=== PATIENT | female | born 1945 | race Caucasian/White ===

== ENCOUNTER 2021-06-28 15:52 | Emergency (ER) | payer OTHER, SELFPAY ==
--- NOTE | ~2021-06-28 | XR_ITS ---
EXAMINATION: XR ABDOMEN KUB CLINICAL INDICATION: Lower abdominal pain. History of constipation. COMPARISON: None TECHNIQUE: AP view of the abdomen. FINDINGS: The bowel gas pattern is normal with no evidence of ileus or obstruction. Moderate volume of stool scattered throughout colon from cecum through pelvis. No unusual soft tissue calcifications are noted. Vascular stent in the distal aorta and the iliac arteries. Advanced multilevel degenerative spondylosis spine. Degenerative joint disease of hips bilateral. XR/XR KUB IMPRESSION: Moderate volume of scattered stool in colon. Nonobstructive bowel pattern.
[2021-06-28 16:20] VITALS: BP 121/58; PULSE 102; RESP 18; TEMP 36.8; O2SAT 96; BMI 29.1
[2021-06-28 16:34] LABS: MANUAL DIFF FLAG NO
[2021-06-28 16:36] LABS: Basophils Percent Auto 0.3 % (0-2); Eosinophils Absolute Auto 0.3 X10*3/uL (0.0-0.4); Eosinophils Percent Auto 2.8 % (0-4); Hematocrit 36.4 % (37.0-47.0); Hemoglobin 11.8 g/dl (12.0-16.0); Imm Gran Abs Auto 0.03 X10*3/uL (0.00-0.03); Imm Gran Pct Auto 0.3 % (0.0-0.4); Lymphocytes Absolute Auto 1.7 X10*3/uL (1.2-4.9); Lymphocytes Percent Auto 15.6 % (20-40); Mean Corpuscular HGB Conc 32.4 g/dl (31.0-35.0); Mean Corpuscular Hemoglobin 28.1 pg (27.0-33.0); Mean Corpuscular Volume 86.7 fL (80.0-98.0); Mean Platelet Volume 9.4 fL (9.4-12.3); Monocytes Absolute Auto 0.7 X10*3/uL (0.1-1.2); Monocytes Percent Auto 6.4 % (2-11); Neutrophils Absolute Auto 8.1 x10*3/uL (2.0-8.3); Neutrophils Percent Auto 74.6 % (45-73); Platelet Count 303 X10*3/uL (160-400); Red Cell Distribution Width 15.7 % (11.0-16.0); White Blood Count 10.8 X10*3/uL (4.8-10.8)
[2021-06-28 16:48] LABS: Anion Gap 13 (12-20); Blood Urea Nitrogen 15 mg/dL (9-16); Calcium 9.4 mg/dL (8.4-10.2); Carbon Dioxide 28 mmol/L (22-29); Chloride 103 mmol/L (96-108); Creatinine Clr Calc Pharmacy 60.9; Estimated Glomerular Filt Rate > 60; Glucose Random 111 mg/dL (60-115); Potassium 4.3 mmol/L (3.3-5.1); Sodium 140 mmol/L (135-145)
[2021-06-28 17:05] LABS: Appearance Urine CLEAR; Color Urine YELLOW; Glucose Urine UA NEG (NEG); Leukocyte Esterase Urine NEG (NEG); Nitrite Urine NEG (NEG); Specific Gravity - Urine 1.015 (1.005-1.025); UACC Culture Trigger NO; Urine Blood TRACE (NEG); Urine Ketones NEG (NEG); Urine Protein 1+ MG/DL (NEG-TRACE)
[2021-06-28 17:39] LABS: Bacteria Urine 2+ /LPF; RBC Urine 0-2 /HPF (0); Squamous Epithelial Cell Urine 3+ /LPF; WBC Urine 0-2 /HPF (0-4)
[2021-06-28 18:35] VITALS: BP 110/53; PULSE 80; O2SAT 93
[2021-06-28 19:46] LABS: Lipase 25 U/L (8-78)
== END 2021-06-28 19:35 | disposition left against medical advice (07) ==
LOC: HO.ED 19:33
PROVIDERS: Emergency Provider Emergency Medicine; PCP Internal Medicine
DX: R10.30 Lower abdominal pain, unspecified (principal)
CPT/HCPCS: 36415; 74018; 80048; 81001; 81003; 83690; 85025; 99283

== ENCOUNTER 2021-07-20 14:08 | Outpatient (REF) | payer MEDICARE, SELFPAY ==
[2021-07-20 16:56] LABS: Hematocrit 35.8 % (37.0-47.0); Hemoglobin 11.3 g/dl (12.0-16.0); Mean Corpuscular HGB Conc 31.6 g/dl (31.0-35.0); Mean Corpuscular Hemoglobin 27.8 pg (27.0-33.0); Mean Corpuscular Volume 88.2 fL (80.0-98.0); Mean Platelet Volume 9.7 fL (9.4-12.3); Platelet Count 313 X10*3/uL (160-400); Red Blood Count 4.06 X10*6/uL (4.20-5.50); Red Cell Distribution Width 15.5 % (11.0-16.0); White Blood Count 8.6 X10*3/uL (4.8-10.8)
[2021-07-20 17:53] LABS: Folate > 20.0 ng/mL (> or = 4.0); Vitamin B12 594 pg/mL (200-900)
[2021-07-20 19:38] LABS: Alanine Aminotransferase 12 U/L (0-31); Albumin Level 3.9 g/dL (3.5-5.0); Alkaline Phosphatase 115 U/L (39-117); Anion Gap 15 (12-20); Aspartate Amino Transferase 18 U/L (5-31); Bilirubin Total 0.2 mg/dL (0.0-1.0); Blood Urea Nitrogen 15 mg/dL (9-16); Calcium 9.6 mg/dL (8.4-10.2); Carbon Dioxide 23 mmol/L (22-29); Chloride 108 mmol/L (96-108); Estimated Glomerular Filt Rate > 60; Glucose Random 85 mg/dL (60-115); Lipase 52 U/L (8-78); Potassium 4.5 mmol/L (3.3-5.1); Sodium 141 mmol/L (135-145); Total Protein 7.1 g/dL (6.5-8.0)
[2021-07-20 19:58] LABS: TSH reflex Free T4 2.09 uIU/mL (0.32-4.0)
[2021-07-22 11:12] LABS: H Pylori Breath Test Negative (Negative)
[2021-07-23 20:41] LABS: Transglutaminase Ab IgG <1.0 U/mL; Transglutaminase IgA <1.0 U/mL
[2021-07-26 12:21] LABS: Vitamin D 25-OH, D2 <4 ng/mL; Vitamin D 25-OH, D3 41 ng/mL; Vitamin D 25-OH, Total 41 ng/mL (30-100)
== END 2021-07-20 14:09 | disposition home or self-care (01) ==
LOC: HO.LAB 14:08
PROVIDERS: PCP Internal Medicine; Referring Provider Internal Medicine; Visit Provider Nurse Practitioner Family
DX: E55.9 Vitamin D deficiency, unspecified (principal); R19.7 Diarrhea, unspecified; K21.9 Gastro-esophageal reflux disease without esophagitis; K58.1 Irritable bowel syndrome with constipation; R14.0 Abdominal distension (gaseous); R13.10 Dysphagia, unspecified; K59.04 Chronic idiopathic constipation; K64.8 Other hemorrhoids
CPT/HCPCS: 36415; 80053; 82306; 82607; 82746; 83013; 83690; 84443; 85027; 86364

== ENCOUNTER 2021-07-23 14:41 | Outpatient (REF) | payer MEDICARE, SELFPAY ==
[2021-07-23 15:29] LABS: Alanine Aminotransferase 9 U/L (0-31); Albumin Level 3.8 g/dL (3.5-5.0); Alkaline Phosphatase 109 U/L (39-117); Anion Gap 12 (12-20); Aspartate Amino Transferase 15 U/L (5-31); Bilirubin Total 0.2 mg/dL (0.0-1.0); Blood Urea Nitrogen 12 mg/dL (9-16); Calcium 9.4 mg/dL (8.4-10.2); Carbon Dioxide 26 mmol/L (22-29); Chloride 107 mmol/L (96-108); Estimated Glomerular Filt Rate > 60; Glucose Random 79 mg/dL (60-115); Potassium 4.2 mmol/L (3.3-5.1); Sodium 141 mmol/L (135-145); Total Protein 6.8 g/dL (6.5-8.0)
[2021-07-30 18:52] LABS: Pancreatic Elastase-1 >500 mcg/g
== END 2021-07-23 14:42 | disposition home or self-care (01) ==
LOC: HO.LAB 14:41
PROVIDERS: Nurse Practitioner Family; PCP Internal Medicine; Visit Provider Internal Medicine
DX: R10.9 Unspecified abdominal pain (principal); J84.9 Interstitial pulmonary disease, unspecified; L21.9 Seborrheic dermatitis, unspecified; M06.9 Rheumatoid arthritis, unspecified; M48.061 Spinal stenosis, lumbar region without neurogenic claudication
CPT/HCPCS: 36415; 80053; 82656

== ENCOUNTER 2021-08-21 08:36 | Outpatient (REF) | payer MEDICARE, SELFPAY ==
--- NOTE | ~2021-08-21 | CT_ITS ---
EXAMINATION: CT ABDOMEN AND PELVIS WITHOUT CONTRAST CLINICAL INFORMATION: Abdominal pain COMPARISON: Previous CT of the abdomen and pelvis July 2021 TECHNIQUE: Multidetector volumetric imaging was performed from the superior aspect of the liver through the pubic symphysis. Sagittal and coronal reformatted images were obtained on the technologist's workstation. This CT examination was performed using dose optimization techniques as appropriate, variously including the following: *Automated exposure control *Adjustment of mA and/or kV according to patient size (this includes techniques or standardized protocols for targeted exams where dose is matched to indication/reason for exam; i.e. extremities or head) *Use of iterative reconstruction technique DLP: 335 mGy-cm FINDINGS: LUNG BASES: The visualized lung bases are unremarkable. LIVER, GALLBLADDER, AND BILIARY TREE: The liver is normal in size, shape, and attenuation. No focal hepatic lesion or biliary ductal dilatation is present. Air in the liver is no longer seen. The gallbladder is unremarkable with no evidence of radiopaque gallstones, gallbladder wall thickening, or obvious pericholecystic inflammatory changes. PANCREAS: Unremarkable. SPLEEN: Unremarkable. ADRENAL GLANDS: Unremarkable. KIDNEYS AND URETERS: The kidneys are normal in size, shape, and attenuation. No hydronephrosis, hydroureter, or calculi seen. There are small calcifications in the left kidney probably representing vascular calcifications as opposed to stones. BLADDER: Unremarkable. GASTROINTESTINAL TRACT: There is stool throughout the colon suggestive of constipation. There is diverticulosis of the colon. Small and large bowel is otherwise unremarkable. The appendix is not seen. The stomach is unremarkable. ABDOMINAL WALL: No significant hernia is appreciated. LYMPH NODES: Normal. VASCULAR: There is evidence of atherosclerotic disease. There are bilateral iliac artery stents. No aneurysm is seen. PELVIC VISCERA: Unremarkable. OSSEOUS STRUCTURES: There are degenerative changes of the spine. CT/CT abdomen pelvis wo con IMPRESSION: Diverticulosis and constipation. Small left renal calcifications probably representing vascular calcifications as opposed to stones. Atherosclerotic disease and bilateral iliac artery stents. Fleischner guidelines were followed.
[2021-08-21] MEDS: Barium Sulfate Oral (Vanilla) 450 ML ORAL.SUSP 900 ML PO (10:59)
== END 2021-08-21 08:37 | disposition home or self-care (01) ==
LOC: HO.CT 08:36
PROVIDERS: PCP Internal Medicine; Visit Provider Nurse Practitioner Family
DX: R10.9 Unspecified abdominal pain (principal)
CPT/HCPCS: 74176

== ENCOUNTER 2021-08-23 14:41 | Outpatient (REF) | payer MEDICARE, SELFPAY ==
--- NOTE | ~2021-08-23 | XR_ITS ---
EXAMINATION: XR LUMBOSACRAL SPINE CLINICAL INFORMATION: Postlaminectomy syndrome COMPARISON: None TECHNIQUE: Three views of the lumbosacral spine. FINDINGS: No acute fracture or subluxation. Vertebral body height and alignment maintained. Diffuse disc space narrowing with endplate sclerosis and osteophyte formation. Multilevel facet arthropathy. The sacroiliac joints are symmetric. The sacrum is intact. Vascular stents noted. XR/XR lumbar spine 2-3V IMPRESSION: Moderate degenerative changes throughout the lumbar spine.
--- NOTE | ~2021-08-23 | XR_ITS ---
EXAMINATION: XR KNEE, LEFT XR KNEE, RIGHT CLINICAL INFORMATION: Knee pain COMPARISON: None TECHNIQUE: 4 views of each knee FINDINGS: Left knee: No fracture or subluxation. There is severe medial compartment joint space narrowing with inferior tilt of the tibial plateau. Xath-ip-khan appearance with subchondral sclerosis, cyst formation, and prominent osteophytes. Mild narrowing at the lateral and patellofemoral compartments with mild osteophyte formation. Small joint effusion. Enthesophyte formation of the patella. Right knee: No fracture or subluxation. Severe medial compartment narrowing with inferior tilt of the medial tibial plateau. Prominent osteophytes with sclerosis. Mild narrowing at the lateral and patellofemoral compartments with marginal osteophyte formation. Small joint effusion. Enthesophyte formation of the patella. XR/XR knee RT 3V IMPRESSION: Advanced tricompartmental degenerative changes of both knees, most severe at the medial compartment bilaterally.
--- NOTE | ~2021-08-23 | XR_ITS ---
EXAMINATION: XR KNEE, LEFT XR KNEE, RIGHT CLINICAL INFORMATION: Knee pain COMPARISON: None TECHNIQUE: 4 views of each knee FINDINGS: Left knee: No fracture or subluxation. There is severe medial compartment joint space narrowing with inferior tilt of the tibial plateau. Jqsl-[id number] appearance with subchondral sclerosis, cyst formation, and prominent osteophytes. Mild narrowing at the lateral and patellofemoral compartments with mild osteophyte formation. Small joint effusion. Enthesophyte formation of the patella. Right knee: No fracture or subluxation. Severe medial compartment narrowing with inferior tilt of the medial tibial plateau. Prominent osteophytes with sclerosis. Mild narrowing at the lateral and patellofemoral compartments with marginal osteophyte formation. Small joint effusion. Enthesophyte formation of the patella. XR/XR knee LT 3V IMPRESSION: Advanced tricompartmental degenerative changes of both knees, most severe at the medial compartment bilaterally.
== END 2021-08-23 14:42 | disposition home or self-care (01) ==
LOC: HO.XRAY 14:41
PROVIDERS: PCP Internal Medicine; Visit Provider Nurse Practitioner Family
DX: M47.816 Spondylosis without myelopathy or radiculopathy, lumbar region (principal); M96.1 Postlaminectomy syndrome, not elsewhere classified; M17.0 Bilateral primary osteoarthritis of knee
CPT/HCPCS: 72100; 73562; 99202

== ENCOUNTER → 2021-09-05 12:14 | Outpatient (BNVA) | payer MEDICARE, SELFPAY | PROVIDERS: PCP Internal Medicine; Visit Provider Nurse Practitioner Family | DX: K58.1 Irritable bowel syndrome with constipation (principal); K59.04 Chronic idiopathic constipation; K21.9 Gastro-esophageal reflux disease without esophagitis; K64.9 Unspecified hemorrhoids | CPT/HCPCS: 99212 ==

== ENCOUNTER → 2021-09-18 14:33 | Outpatient (BNVA) | payer MEDICARE, SELFPAY | PROVIDERS: PCP Internal Medicine; Visit Provider Nurse Practitioner Family | DX: M47.816 Spondylosis without myelopathy or radiculopathy, lumbar region (principal); M96.1 Postlaminectomy syndrome, not elsewhere classified; M17.0 Bilateral primary osteoarthritis of knee; M25.561 Pain in right knee; M25.562 Pain in left knee | CPT/HCPCS: 99212 ==

== ENCOUNTER → 2021-10-10 10:38 | Outpatient (BNVA) | payer MEDICARE, SELFPAY | PROVIDERS: PCP Internal Medicine; Visit Provider Nurse Practitioner Family | DX: R10.9 Unspecified abdominal pain (principal); K58.1 Irritable bowel syndrome with constipation; K59.04 Chronic idiopathic constipation; K21.9 Gastro-esophageal reflux disease without esophagitis; Z86.010 Personal history of colon polyps | CPT/HCPCS: 99212 ==

== ENCOUNTER → 2021-10-15 07:45 | Outpatient (REF) | payer MEDICARE, SELFPAY ==
--- NOTE | ~2021-10-15 | NM_ITS ---
EXAMINATION: [place] NUCLEAR MEDICINE HEPATOBILIARY WITHOUT PHARMACY CLINICAL INFORMATION: Abdominal pain. COMPARISON: CT abdomen and pelvis without contrast 08/21/2021. TECHNIQUE: Following intravenous administration of 5 mCi of 99m Tc mebrofenin, imaging over the right upper quadrant was obtained up to 60 minutes. At 60 minutes, oral ensure was administered and further imaging was obtained up to 60 minutes. FINDINGS: There is normal hepatic uptake without focal defects seen. There is visualization of CBD at 29 minutes. Small bowel is visualized at 35 minutes. Post-CCK, gallbladder ejection fraction at 60 minutes is 58% and is normal. [place] hepatobiliary wo pharm IMPRESSION: Normal hepatic uptake. Patent cystic duct and CBD. Normal gallbladder ejection fraction of 58% at 60 minutes.
== END ==
LOC: HO.NUCMED 07:45
PROVIDERS: PCP Internal Medicine; Visit Provider Nurse Practitioner Family
DX: R10.9 Unspecified abdominal pain (principal)
CPT/HCPCS: 78226; A9537

== ENCOUNTER 2021-10-22 11:58 | Outpatient (REF) | payer MEDICARE, SELFPAY | END 2021-10-22 11:59 | disposition home or self-care (01) | LOC: HO.HOSX 11:58 | PROVIDERS: Visit Provider Orthopaedic Surgery | DX: Z13.89 Encounter for screening for other disorder (principal) ==

== ENCOUNTER 2021-10-25 12:25 | Day surgery (SDC) | payer MEDICARE, SELFPAY ==
[2021-10-19 10:09] VITALS: BMI 29.1
--- NOTE | 2021-10-24 13:14 | P.CONAN_ITS ---
Documented by User: April Vargas NP 10/24/21 13:17 HPI - Anesthesia Eval Consult details Narrative: 76yo F for Colonoscopy PMFSH Active Problems Active Problems: All Active Problems (Updated 10/19/21 @ 10:05 by Marifer Quinteros RN) Bilateral knee pain (Acute) Lumbar spondylosis (Acute) Post laminectomy syndrome (Acute) Tricompartment osteoarthritis of both knees (Acute) IBS (irritable bowel syndrome) (Acute) Past Medical History Medical History (Updated 10/19/21 @ 10:05 by Marifer Quinteros RN) Arthritis Asthma Back pain COPD (chronic obstructive pulmonary disease) GERD (gastroesophageal reflux disease) Hard of hearing IBS (irritable bowel syndrome) Peripheral neuropathy Rheumatoid arthritis Spinal stenosis Surgical History Surgical History (Updated 10/19/21 @ 10:05 by Marifer Quinteros RN) History of back surgery Hx of bilateral cataract extraction Social History Social History (Updated 10/19/21 @ 10:06 by Marifer Quinteros RN) Household Members: Family Household Members Other:: daughter Are you a primary certified social workers in health care to a significant other at home: No Do you presently have visiting nurse or other home services: No Alcohol intake: never Patient Tobacco Use Status: Current everyday Tobacco user Tobacco use type: Cigarette Cigarettes Per Day: 5 Years Smoked: 40+ Use of substances other than those prescribed or required for medical reasons: No Are you DNR?: No Advance Directives: No Advance Directives Information Provided: Yes Advance Directives on File: No Recently lost weight without trying: No Nutrition Risks: Surgical patient >75years Meds Allergies Allergy/AdvReac Type Severity Reaction Status Date / Time Iodinated Contrast Media Allergy Intermediate ITCHINESS Verified 10/18/21 15:53 [IV CONTRAST] red dye Allergy Intermediate Hives Verified 10/19/21 10:06 CHOLESTEROL MEDICATIONS Allergy Intermediate MOUTH Uncoded 10/18/21 15:53 BLISTERS Home Medications Medication Instructions Recorded Confirmed Last Taken Type albuterol sulfate 90 mcg/actuation 2 puff PO QID PRN asthma 08/23/21 10/19/21 Unknown History aerosol inhaler (ProAir HFA) ketoconazole 2 % topical cream appl topical BID 08/23/21 Unknown History ibuprofen 10/25/21 10/25/21 History Exam Exam Date and Time: October 24, 2021 1314 Height,Weight and Vital Signs: Height 4 ft 8 in Weight 58.967 kg Pertinent Lab Results Pertinent Lab Results: Laboratory Tests 07/20/21 07/23/21 16:11 14:51 WBC 8.6 Hgb 11.3 L Hct 35.8 L Plt Count 313 Sodium 141 Potassium 4.2 Chloride 107 Carbon Dioxide 26 BUN 12 Creatinine 0.57 Assessment and Plan Assessment Anesthesia Assessment: Chart Reviewed Documented by User: Katya Cabral MD 10/25/21 14:30 [facility] Past Medical History Medical History (Updated 10/19/21 @ 10:05 by Marifer Quinteros RN) Arthritis Asthma Back pain COPD (chronic obstructive pulmonary disease) GERD (gastroesophageal reflux disease) Hard of hearing IBS (irritable bowel syndrome) Peripheral neuropathy Rheumatoid arthritis Spinal stenosis Family History Family history of problems with anesthesia: No Surgical History Surgical History (Updated 10/19/21 @ 10:05 by Marifer Quinteros RN) History of back surgery Hx of bilateral cataract extraction History of Problems with Anesthesia: No Social History Social History (Updated 10/19/21 @ 10:06 by Marifer Quinteros RN) Household Members: Family Household Members Other:: daughter Are you a primary certified social workers in health care to a significant other at home: No Do you presently have visiting nurse or other home services: No Alcohol intake: never Patient Tobacco Use Status: Current everyday Tobacco user Tobacco use type: Cigarette Cigarettes Per Day: 5 Years Smoked: 40+ Use of substances other than those prescribed or required for medical reasons: No Are you DNR?: No Advance Directives: No Advance Directives Information Provided: Yes Advance Directives on File: No Recently lost weight without trying: No Nutrition Risks: Surgical patient >75years Meds Allergies Allergy/AdvReac Type Severity Reaction Status Date / Time Iodinated Contrast Media Allergy Intermediate ITCHINESS Verified 10/18/21 15:53 [IV CONTRAST] red dye Allergy Intermediate Hives Verified 10/19/21 10:06 CHOLESTEROL MEDICATIONS Allergy Intermediate MOUTH Uncoded 10/18/21 15:53 BLISTERS Home Medications Medication Instructions Recorded Confirmed Last Taken Type albuterol sulfate 90 mcg/actuation 2 puff PO QID PRN asthma 08/23/21 10/19/21 Unknown History aerosol inhaler (ProAir HFA) ketoconazole 2 % topical cream appl topical BID 08/23/21 Unknown History ibuprofen 10/25/21 10/25/21 History Exam Airway Mallampati Class: III TM Dist: >3cm Neck ROM: Full Assessment and Plan Assessment Anesthesia Assessment: Anesthesia Plan Discussed Final Anesthetic Review Family History of Problems with Anesthesia: No History of Problems with Anesthesia: No NPO: Yes ASA Class: III Final Preanesthetic Review: No Changes in Pt Med Stat, Meds/Allgs Chart Reviewed, Consent Obtained/Reviewed and Anes Risks/Benef Reviewed Patient Risk: Intermediate Procedure Risk: Low Anesthetic Plan Anesthetic Plan: MAC: Disposition: Standard PACU
[2021-10-25] VITALS (7 sets, daily range): BP systolic 110–159; BP diastolic 54–77; PULSE 66–116; RESP 13–16; TEMP 36.1–36.6; O2SAT 94–100
[2021-10-25] MEDS: Lactated Ringers 1,000 ML 100 ML IVCONT (13:23)
--- NOTE | 2021-10-25 13:28 | P.HPSUR_ITS ---
Pre-Procedural Eval Section A Date of Service: 10/25/21 Section B Chief Complaint: abnormal bowel habit, feeling discomfort with food Details of Present Illness: epigastric discomfort with food and fullness Relevant Family History (Specify if Yes): No Relevant Social History: Tobacco Use Present Medications: see Short Stay Collaborative assessment Medical History: Significant History (Arthritis Asthma Back pain COPD (chronic obstructive pulmonary disease) GERD (gastroesophageal reflux disease) Hard of hearing IBS (irritable bowel syndrome) Peripheral neuropathy Rheumatoid ar thritis Spinal stenosis) History of Previous Operations: Relevant previous surgery/procedure and date(s) (History of back surgery Hx of bilateral cataract extraction) Allergies: Allergies Allergy/AdvReac Type Severity Reaction Status Date / Time Iodinated Contrast Media Allergy Intermediate ITCHINESS Verified 10/18/21 15:53 [IV CONTRAST] red dye Allergy Intermediate Hives Verified 10/19/21 10:06 CHOLESTEROL MEDICATIONS Allergy Intermediate MOUTH Uncoded 10/18/21 15:53 BLISTERS Review of Systems Sugical H&P ROS: Negative: Constitution, Cardiovascular, Respiratory, Neurological, Psychiatric, Hem-Onc, Allergic/Immunologic, Gastrointestinal, Genitourinary, Musculoskeletal, Integumentary, Endocrine and Eyes/Ears/Nose/Throat Exam Surgical H&P Exam: Normal: HEENT, Normal: Heart, Normal: Lungs, Normal: Abdomen, Normal: Skin and Normal: Neurological and Significant Findings: Extremities (severe OA of hands ) Plan Diagnosis/Plan: Unchanged I have reviewed the history and physical and performed a pertinent physical examination on my patient. No changes have occurred unless specified. EGD added to initial order due to upper GI symptoms r/o gastric outlet obstruction
--- NOTE | 2021-10-25 13:50 | PC.NURSE ---
upon patients arrival she c/o right arm pain. after iv inserted and about 75ml of fluid the patient started to complaint that her right arm was hurting more in the insertion site area. no pinching of skin, no edema, no infiltration and no redness. removed iv and repositioned arm and applied warm blanket. pain remains. also has generalized pain all over. repositioned and applied pillow underneath her left knee area.
--- NOTE | 2021-10-25 14:22 | P.OP_ITS ---
Operative Note Operative Note Date of Service: 10/25/21 Narrative: Operative Information Procedure Description: EGD, Colonoscopy Indication: abnormal bowel habits Anesthesia: MAC FLEXIBLE TRANSORAL UPPER GASTROINTESTINAL ENDOSCOPY AND COLONOSCOPY PROCEDURE NOTE UPPER ENDOSCOPY Consent: Indications for the procedure and potential complications of bleeding, perforation, reaction to medications and missed diagnosis were discussed with the patient and informed consent was obtained. Instrument: Olympus GIF H 190 J mid size upper endoscope Monitoring: Vital signs and clinical assessment, continuous EKG monitoring, Pulse oximetry, Carbon Dioxide monitoring and blood pressure monitoring were done throughout the procedure. Procedure: The patient was placed in the left lateral decubitis position and pre-procedure medications were administered and a bite block was placed. The endoscope was inserted into the mouth and advanced under direct vision to the third part of duodenum. A careful inspection was made as the upper endoscope was withdrawn including a retroflexed examination of the proximal stomach; Findings and interventions are described below. Findings: Larynx:normal Esophagus: GE junction at 38 cm, diaphragm hiatus at 38 cm, bogginess and erythema at GEJ consistent with esophagitis Stomach: Mild erythema with flecks of blood. Biopsies were obtained. Grade 2 flap valve on retroflexed examination of the cardia. Duodenum: Normal bulb and descending duodenum, bx taken Intervention: Biopsies as noted above COLONOSCOPY Instrument: Olympus variable stiffness pediatric scope 190L Colonoscopy Monitoring: Vital signs and clinical assessment, continuous EKG monitoring, Pulse oximetry, Carbon Dioxide monitoring and blood pressure monitoring were done throughout the procedure. Colon withdrawal time was 20 minutes. Procedure: The patient was placed in the left lateral decubitis position and pre-procedure medications were administered. After a digital rectal examination of the ano-rectum, the video colonoscope was inserted into the rectum and advanced through the colon to the cecum/TI. The colonoscope was slowly withdrawn in a retrograde panoramic fashion and the colon mucosa was carefully examined including a retroflexed view of the rectum. Findings and interventions are described below. Procedure Difficulty:moderate due to looping Findings: Terminal Ileum-normal Cecum:normal Ascending Colon: x 3 sessile polyps noted with fecal caps measuring 10-14 mm in length removed with cold snare and edges ablated with sof ttip coag. x2 polyps were clipped to prevent bleeding. x2 polyps were lifted with orise to aid resection Transverse Colon -normal Descending Colon:normal Sigmoid Colon: moderate diverticulosis noted Rectum: Retroflexion with small internal hemorrhoids, grade I, 10 mm sessile polyp removed with cold snare Anorectum - normal Colon preparation: [place] Bowel Preparation Scale Right colon; 2 Transverse colon: 2 Left colon; 2 (0 = Unprepared colon segment with mucosa not seen due to solid stool that cannot be cleared. 1 = Portion of mucosa of the colon segment seen, but other areas of the colon segment not well seen due to staining, residual stool and/or opaque liquid. 2 = Minor amount of residual staining, small fragments of stool and/or opaque liquid, but mucosa of colon segment seen well. 3 = Entire mucosa of colon segment seen well with no residual staining, small fragments of stool or opaque liquid) Impression and Post Procedure Diagnosis: Endoscopy Findings: gastritis esophagitis Colonoscopy Findings: polyps internal hemorrhoids diverticular disease Plan: Await Pathology results Repeat Colonoscopy in 1-2 years due to polyps or earlier if clinically indicated High fiber diet leaflet avoid straining at stool, epsom salts and sitz bath, anusol supps or cream avoid nsaids for 3-5 days may benefit from PPI-will await bx results make sure no H plyori Above findings were reviewed with the patient and relevant handouts were provided if indicated.
--- NOTE | 2021-10-25 14:30 | PC.NURSE ---
repositioned one assist
[2021-10-25] MEDS: ondansetron HCL 4 MG/2 ML VIAL IVPUSH (17:02)
== END 2021-10-25 17:42 | disposition home or self-care (01) ==
PROVIDERS: PCP Internal Medicine; Visit Provider Internal Medicine Gastroenterology
PROC: (CPT 45385; principal; 2021-10-25 13:50)
DX: Z12.11 Encounter for screening for malignant neoplasm of colon (principal); D12.2 Benign neoplasm of ascending colon; K57.30 Diverticulosis of large intestine without perforation or abscess without bleeding; K63.5 Polyp of colon; K64.0 First degree hemorrhoids; K58.9 Irritable bowel syndrome, unspecified; K29.70 Gastritis, unspecified, without bleeding; K20.80 Other esophagitis without bleeding; K44.9 Diaphragmatic hernia without obstruction or gangrene; K21.9 Gastro-esophageal reflux disease without esophagitis; J44.9 Chronic obstructive pulmonary disease, unspecified; M06.9 Rheumatoid arthritis, unspecified; G62.9 Polyneuropathy, unspecified
CPT/HCPCS: 45385; 45381; 43239; 88305; 88342; J2405

== ENCOUNTER 2021-10-29 14:20 | Emergency (ER) | payer MEDICARE, SELFPAY ==
--- NOTE | 2021-10-29 14:27 | ECG_ITS ---
Test Reason : chest pain Blood Pressure : / mmHG Vent. Rate : 100 BPM Atrial Rate : 100 BPM P-R Int : 160 ms QRS Dur : 080 ms QT Int : 348 ms P-R-T Axes : 027 -26 028 degrees QTc Int : 448 ms Normal sinus rhythm Nonspecific ST and T wave abnormality Abnormal ECG No previous ECGs available Referred By: Generic ED Physician Electronically Signed By:ALYCIA GUZMAN
[2021-10-29 14:35] VITALS: BP 135/65; PULSE 100; RESP 19; TEMP 36.8; O2SAT 98; BMI 28.1
--- NOTE | 2021-10-29 15:56 | PC.NURSE ---
family at chair side approached registration. Per daughter since colonoscopy pt has been unwilling to consume any medication and has concerns that her daughter is out to get her. Pt is upset regarding the wait time, and states i'm a burden to my daughter, I need an half-way . Pt denies SI/HI/AV hallucinations.
[2021-10-29 20:48] VITALS: BP 168/73; PULSE 74; RESP 16; TEMP 36.7; O2SAT 98
--- NOTE | 2021-10-29 21:09 | ED.ABDPAIN ---
HPI - Abdominal Pain General Chief Complaint: Abdominal Pain Stated Complaint: chest tightness, sob, stomach cramps Time Seen by Provider: 10/29/21 21:08 Source: patient Limitations: no limitations History of Present Illness HPI narrative: This is a 76-year-old female with multiple complaints. The patient notes that she has had intermittent nausea for some time. She is on medicine for constipation which she takes each evening. She has had nausea today but no vomiting. She has had this investigated in the past, had a colonoscopy. She believes that 1 of her medicines that she takes in the morning makes her itch and she has been itchy today all over, especially in her ears. She denies any rash. She denies any cough or shortness of breath or fever. She denies any actual vomiting. She denies diarrhea. Denies any urinary symptoms. She states that her back/sciatica is sore from sitting in the chair for so long but she mostly feels better now Related Data Home Medications Medication Instructions Recorded Confirmed albuterol sulfate 90 mcg/actuation 2 puff PO QID PRN asthma 08/23/21 10/19/21 aerosol inhaler (ProAir HFA) ketoconazole 2 % topical cream appl topical BID 08/23/21 ibuprofen 10/25/21 Previous Rx's Medication Instructions Recorded hydrocortisone 2.5 % topical cream 1 appl SC BID-QID PRN hemorrhoids 07/20/21 with perineal applicator #30 grams (Proctosol HC) sennosides 8.6 mg tablet (Natural 8.6 mg PO BEDTIME constipation #90 07/20/21 Senna Laxative) tabs magnesium oxide 400 mg PO DAILY #90 caps 09/05/21 bisacodyl 5 mg tablet,delayed 10 mg PO ONCE 1 day #2 tabs 10/10/21 release (Dulcolax (bisacodyl)) docusate sodium 100 mg capsule 100 mg PO DAILY #90 caps 10/10/21 methylcellulose (laxative) 500 mg 500 mg PO DAILY #90 tabs 10/10/21 tablet (Citrucel) polyethylene glycol 3350 17 238 g PO ONCE #238 grams 10/10/21 gram/dose oral powder (Miralax) sucralfate 1 gram tablet 1 g PO BEDTIME #30 tabs 10/22/21 pantoprazole 40 mg tablet,delayed 40 mg PO DAILY #60 tabs 10/25/21 release Allergies Allergy/AdvReac Type Severity Reaction Status Date / Time Iodinated Contrast Media Allergy Intermediate ITCHINESS Verified 10/18/21 15:53 [IV CONTRAST] red dye Allergy Intermediate Hives Verified 10/19/21 10:06 CHOLESTEROL MEDICATIONS Allergy Intermediate MOUTH Uncoded 10/18/21 15:53 BLISTERS Review of Systems Review of Systems Yes all other systems are reviewed and are negative Constitutional: Reports as per HPI and Denies fever(s) Eyes: Reports as per HPI and Reports no additional eye complaints Reports system reviewed and no additional complaints, except as documented, Reports as per HPI, Denies nasal congestion, Denies nasal discharge and Denies sore throat Cardiovascular: Reports as per HPI, Denies chest pain and Denies dyspnea Respiratory: Reports as per HPI, Denies cough and Denies dyspnea Gastrointestinal: Reports as per HPI, Reports abdominal pain, Reports constipation, Denies diarrhea, Reports nausea and Denies vomiting Genitourinary: Reports as per HPI, Denies hematuria, Denies urinary frequency and Denies dysuria Musculoskeletal: Reports no additional musculoskeletal complaints, Reports back pain and Denies numbness Skin/Breast: Reports as per HPI and Denies rash Reports as per HPI, Denies focal weakness and Denies numbness Psychiatric: Reports no additional psychiatric complaints and Reports as per HPI Endocrine: Reports no additional endocrine complaints and Reports as per HPI Hematologic/Lymphatic: Reports no additional hematologic/lymphatic complaints, Reports as per HPI and Reports other (No peripheral edema) [facility] Past Medical History Medical History (Updated 10/30/21 @ 00:01 by Maribell Louie) Arthritis Asthma Back pain COPD (chronic obstructive pulmonary disease) GERD (gastroesophageal reflux disease) Hard of hearing IBS (irritable bowel syndrome) Peripheral neuropathy Rheumatoid arthritis Spinal stenosis Surgical History (Updated 10/19/21 @ 10:05 by Marifer Quinteros RN) History of back surgery Hx of bilateral cataract extraction Social History Social History (Updated 10/19/21 @ 10:06 by Marifer Quinteros RN) Household Members: Family Household Members Other:: daughter Are you a primary aged or disabled carer to a significant other at home: No Do you presently have visiting nurse or other home services: No Alcohol intake: never Patient Tobacco Use Status: Current everyday Tobacco user Tobacco use type: Cigarette Cigarettes Per Day: 5 Years Smoked: 40+ Advance Directives: No Advance Directives Information Provided: No Physical Exam ED Vital Signs: Vital Signs - 24 hr 10/29/21 14:35 10/29/21 20:48 Temperature 98.3 F 98.1 F Pulse Rate 100 74 Respiratory Rate 19 16 Blood Pressure 135/65 168/73 H Pulse Oximetry 98 98 Oxygen Delivery Method Room Air Room Air BMI result Body Mass Index 28.1 Const Other: Patient very hard of hearing, not ill appearing. Moderately obese. General: no acute distress Orientation/consciousness: patient oriented x3 HENMT Head: Yes normal to inspection General nose exam: Normal external nose present Mouth: moist mucous membranes Throat: Yes posterior oropharynx normal, Yes tonsils normal and Yes uvula midline Eyes Eyelids: Yes eyelids normal Conjunctivae: conjunctivae normal Pupils: Equal, round and reactive pupils present Neck Neck: Yes supple Resp Effort & Inspection: normal respiratory effort Auscultation: clear to auscultation bilaterally Cardio Rate: regular rate Rhythm: regular rhythm Heart sounds: S1 normal heart sound present, S2 normal heart sound present, no gallops, no murmurs and no rubs GI Inspection: No distended Palpation (GI): Soft to palpation and nontender Auscultation: normal bowel sounds Skin Other: No rash noted General skin exam: other (Warm and dry) Neuro General: patient oriented x3 and CN's II-XI intact bilaterally Cranial nerves: Yes Equal, round and reactive pupils present Extrem General: Yes no pedal edema Psych Affect: normal affect Attitude: cooperative MDM - Abdominal Pain MDM Narrative Medical decision making narrative: Patient with multiple complaints including pruritus, chronic nausea, constipation. Patient's labs are unremarkable, abdominal exam benign. No rash noted. Patient and improvement with hydroxyzine. Patient is safe for outpatient follow-up Lab Data Attestation: I reviewed the patient's lab results. Result diagrams: 10/29/21 22:04 10/29/21 22:04 Labs: Lab Results 10/29/21 10/29/21 10/29/21 Range/Units 22:04 22:04 22:53 WBC 9.1 (4.8-10.8) X10*3/uL RBC 4.37 (4.20-5.50) X10*6/uL Hgb 11.9 L (12.0-16.0) g/dl Hct 37.6 (37.0-47.0) % MCV 86.0 (80.0-98.0) fL MCH 27.2 (27.0-33.0) pg MCHC 31.6 (31.0-35.0) g/dl RDW 15.3 (11.0-16.0) % Plt Count 345 (160-400) X10*3/uL MPV 8.7 L (9.4-12.3) fL Immature Gran % (Auto) 0.3 (0.0-0.4) % Neut % (Auto) 63.3 (45-73) % Lymph % (Auto) 26.0 (20-40) % [place] % (Auto) 6.1 (2-11) % Eos % (Auto) 3.9 (0-4) % Baso % (Auto) 0.4 (0-2) % Lymph # (Auto) 2.4 (1.2-4.9) X10*3/uL [place] # (Auto) 0.6 (0.1-1.2) X10*3/uL Eos # (Auto) 0.4 (0.0-0.4) X10*3/uL Baso # (Auto) 0.0 (0.0-0.2) X10*3/uL Abs Immat Gran (auto) 0.03 (0.00-0.03) X10*3/uL Absolute Neuts (auto) 5.8 (2.0-8.3) x10*3/uL Absolute Nucleated RBC 0.000 (0.0-0.012) X10*3/uL Nucleated RBC % (auto) 0.0 (0.0-0.2) /100WBC Sodium 142 (135-145) mmol/L Potassium 4.8 (3.3-5.1) mmol/L Chloride 101 (96-108) mmol/L Carbon Dioxide 29 (22-29) mmol/L Anion Gap 17 (12-20) BUN 9 (9-16) mg/dL Creatinine 0.62 (0.5-1.4) mg/dL Estim Creat Clear Calc 57.8 Estimated GFR > 60 Random Glucose 148 H (60-115) mg/dL Calcium 9.8 (8.4-10.2) mg/dL Total Bilirubin 0.3 (0.0-1.0) mg/dL AST 15 (5-31) U/L ALT 8 (0-31) U/L Alkaline Phosphatase 111 (39-117) U/L Total Protein 7.4 (6.5-8.0) g/dL Albumin 4.2 (3.5-5.0) g/dL Urine Color YELLOW Urine Appearance CLEAR Urine pH 7.0 (5.0-8.0) Ur Specific [place] 1.010 (1.005-1.025) Urine Protein Trace (NEG-TRACE) MG/DL Urine Glucose (UA) Negative (NEG) MG/DL Urine Ketones Negative (NEG) MG/DL Urine Blood Negative (NEG) Urine Nitrite Negative (NEG) Ur Leukocyte Esterase Negative (Negative) ECG Data ECG interpretation date: 10/29/21 ECG interpretation time: 21:35 Interpretation: Sinus rhythm with a rate of 100. Nonspecific T-wave changes. No karla ST elevation or depression. Discharge Plan Discharge Clinical Impression: Nausea, Chronic constipation, Pruritus Patient Disposition: Home, Self-Care Instructions: Acute Nausea and Vomiting (ED), Itchy Skin (ED) Additional Instructions: Follow-up with your primary care physician. Continue current medications. Return for any new or worsened symptoms Prescriptions: No Action sucralfate 1 gram tablet 1 g PO BEDTIME Qty: 30 4RF ibuprofen Rx Instructions: took two tablets this am at 730am pantoprazole 40 mg tablet,delayed release (DR/EC) 40 mg PO DAILY Qty: 60 2RF docusate sodium 100 mg capsule 100 mg PO DAILY Qty: 90 3RF Citrucel 500 mg tablet 500 mg PO DAILY Qty: 90 2RF Rx Instructions: take it with full glass of water bisacodyl [Dulcolax (bisacodyl)] 5 mg tablet,delayed release (DR/EC) 10 mg PO ONCE 1 Days Qty: 2 0RF Rx Instructions: take 2 tabs at noon the day before your colonoscopy polyethylene glycol 3350 [Miralax] 17 gram/dose powder 238 g PO ONCE Qty: 238 0RF Rx Instructions: As directed by gastroenterology department at [facility] sennosides [Natural Senna Laxative] 8.6 mg tablet 8.6 mg PO BEDTIME Qty: 90 3RF hydrocortisone [Proctosol HC] 2.5 % cream with perineal applicator 1 appl SC BID-QID PRN (Reason: hemorrhoids) Qty: 30 2RF albuterol sulfate [ProAir HFA] 90 mcg/actuation HFA aerosol inhaler 2 puff PO QID PRN (Reason: asthma) ketoconazole 2 % cream topical BID magnesium oxide 400 mg magnesium capsule 400 mg PO DAILY Qty: 90 2RF Interventions: ED Discharge Assessment Last Done: 10/29/21 23:11 Discharge Date/Time: 10/29/21 23:12
[2021-10-29] MEDS: hydrOXYzine HCL 25 MG TABLET PO (21:24)
[2021-10-29 22:12] LABS: MANUAL DIFF FLAG NO
[2021-10-29 22:14] LABS: Basophils Percent Auto 0.4 % (0-2); Eosinophils Absolute Auto 0.4 X10*3/uL (0.0-0.4); Eosinophils Percent Auto 3.9 % (0-4); Hematocrit 37.6 % (37.0-47.0); Hemoglobin 11.9 g/dl (12.0-16.0); Imm Gran Abs Auto 0.03 X10*3/uL (0.00-0.03); Imm Gran Pct Auto 0.3 % (0.0-0.4); Lymphocytes Absolute Auto 2.4 X10*3/uL (1.2-4.9); Mean Corpuscular HGB Conc 31.6 g/dl (31.0-35.0); Mean Corpuscular Hemoglobin 27.2 pg (27.0-33.0); Mean Platelet Volume 8.7 fL (9.4-12.3); Monocytes Absolute Auto 0.6 X10*3/uL (0.1-1.2); Monocytes Percent Auto 6.1 % (2-11); Neutrophils Absolute Auto 5.8 x10*3/uL (2.0-8.3); Neutrophils Percent Auto 63.3 % (45-73); Platelet Count 345 X10*3/uL (160-400); Red Blood Count 4.37 X10*6/uL (4.20-5.50); Red Cell Distribution Width 15.3 % (11.0-16.0); White Blood Count 9.1 X10*3/uL (4.8-10.8)
[2021-10-29 22:43] LABS: Alanine Aminotransferase 8 U/L (0-31); Albumin Level 4.2 g/dL (3.5-5.0); Alkaline Phosphatase 111 U/L (39-117); Anion Gap 17 (12-20); Aspartate Amino Transferase 15 U/L (5-31); Bilirubin Total 0.3 mg/dL (0.0-1.0); Blood Urea Nitrogen 9 mg/dL (9-16); Calcium 9.8 mg/dL (8.4-10.2); Carbon Dioxide 29 mmol/L (22-29); Chloride 101 mmol/L (96-108); Creatinine Clr Calc Pharmacy 57.8; Estimated Glomerular Filt Rate > 60; Glucose Random 148 mg/dL (60-115); Potassium 4.8 mmol/L (3.3-5.1); Sodium 142 mmol/L (135-145); Total Protein 7.4 g/dL (6.5-8.0)
[2021-10-29 23:04] LABS: Appearance Urine CLEAR; Color Urine YELLOW; Glucose Urine UA Negative (NEG); Leukocyte Esterase Urine Negative (Negative); Nitrite Urine Negative (NEG); Urine Blood Negative (NEG); Urine Ketones Negative (NEG); Urine Protein Trace MG/DL (NEG-TRACE)
== END 2021-10-29 23:12 | disposition home or self-care (01) ==
PROVIDERS: Emergency Provider Emergency Medicine; PCP Internal Medicine
DX: R11.0 Nausea (principal); K59.00 Constipation, unspecified; L29.9 Pruritus, unspecified; F17.210 Nicotine dependence, cigarettes, uncomplicated
CPT/HCPCS: 36415; 80053; 81003; 85025; 93005; 99283; 99284

== ENCOUNTER 2021-11-01 12:07 | Outpatient (REF) | payer MEDICARE, SELFPAY ==
--- NOTE | ~2021-11-01 | XR_ITS ---
EXAMINATION: XR KNEE AP STANDING CLINICAL INFORMATION: Pain COMPARISON: Bilateral knee x-rays 08/23/2021 TECHNIQUE: AP bilateral standing view of the knees was obtained. FINDINGS: Again noted are severe degenerative changes of both knees. There is complete obliteration of the medial compartment of the left knee with severe narrowing of the medial compartment of the left knee. Prominent osteophytes are noted bilaterally, more prominent within the right knee. There is varus angulation of both knees, more prominent on the right. XR/XR knee standing BI IMPRESSION: Severe degenerative changes of both knees, slightly more prominent on the right.
== END 2021-11-01 12:08 | disposition home or self-care (01) ==
LOC: HO.HOSX 12:07
PROVIDERS: Visit Provider Orthopaedic Surgery
DX: M17.0 Bilateral primary osteoarthritis of knee (principal)
CPT/HCPCS: 73565; 99202

== ENCOUNTER → 2021-11-05 14:36 | Outpatient (BNVA) | payer MEDICARE, SELFPAY | PROVIDERS: PCP Internal Medicine; Visit Provider Internal Medicine Rheumatology | DX: M05.9 Rheumatoid arthritis with rheumatoid factor, unspecified (principal); M17.0 Bilateral primary osteoarthritis of knee; M47.816 Spondylosis without myelopathy or radiculopathy, lumbar region; M19.011 Primary osteoarthritis, right shoulder; M19.012 Primary osteoarthritis, left shoulder | CPT/HCPCS: 20610; 99212 ==

== ENCOUNTER → 2021-11-16 11:34 | Outpatient (BNVA) | payer MEDICARE, SELFPAY | PROVIDERS: PCP Internal Medicine; Visit Provider Nurse Practitioner Family | DX: K58.1 Irritable bowel syndrome with constipation (principal); R19.7 Diarrhea, unspecified; K59.04 Chronic idiopathic constipation; K63.5 Polyp of colon; K21.00 Gastro-esophageal reflux disease with esophagitis, without bleeding; Z98.890 Other specified postprocedural states | CPT/HCPCS: 99212 ==

== ENCOUNTER → 2021-12-17 13:02 | Outpatient (BNVA) | payer MEDICARE, SELFPAY | PROVIDERS: PCP Internal Medicine; Visit Provider Nurse Practitioner Family | DX: K58.1 Irritable bowel syndrome with constipation (principal); K21.9 Gastro-esophageal reflux disease without esophagitis; K59.04 Chronic idiopathic constipation | CPT/HCPCS: 99212 ==

== ENCOUNTER → 2021-12-31 14:00 | Outpatient (BNVA) | payer MEDICARE, SELFPAY | PROVIDERS: PCP Internal Medicine; Visit Provider Nurse Practitioner Family | DX: M19.011 Primary osteoarthritis, right shoulder (principal); M19.012 Primary osteoarthritis, left shoulder; M47.816 Spondylosis without myelopathy or radiculopathy, lumbar region; M17.0 Bilateral primary osteoarthritis of knee; M96.1 Postlaminectomy syndrome, not elsewhere classified | CPT/HCPCS: 99212 ==

== ENCOUNTER → 2022-01-24 13:37 | Outpatient (BNVA) | payer MEDICARE, SELFPAY | PROVIDERS: PCP Internal Medicine; Visit Provider Nurse Practitioner Family | DX: K58.1 Irritable bowel syndrome with constipation (principal); K21.9 Gastro-esophageal reflux disease without esophagitis; R14.0 Abdominal distension (gaseous); K59.04 Chronic idiopathic constipation | CPT/HCPCS: 99212 ==

== ENCOUNTER 2022-03-06 06:11 | Outpatient (REF) | payer MEDICARE, SELFPAY | END 2022-03-06 06:12 | disposition home or self-care (01) | LOC: CF 06:11 | PROVIDERS: Visit Provider Internal Medicine | DX: M17.0 Bilateral primary osteoarthritis of knee (principal); M25.562 Pain in left knee | CPT/HCPCS: 64447 ==

== ENCOUNTER → 2022-03-07 09:37 | Outpatient (BNVA) | payer MEDICARE, SELFPAY | PROVIDERS: PCP Internal Medicine; Visit Provider Nurse Practitioner Family | DX: M17.0 Bilateral primary osteoarthritis of knee (principal); M25.561 Pain in right knee; M25.562 Pain in left knee | CPT/HCPCS: Q3014 ==

== ENCOUNTER 2022-03-13 06:13 | Outpatient (REF) | payer MEDICARE, SELFPAY | END 2022-03-13 06:14 | disposition home or self-care (01) | LOC: CF 06:13 | PROVIDERS: Visit Provider Internal Medicine | DX: M25.561 Pain in right knee (principal) | CPT/HCPCS: 64447; J1040; J3301 ==

== ENCOUNTER → 2022-03-22 11:20 | Outpatient (BNVA) | payer MEDICARE, SELFPAY | PROVIDERS: PCP Internal Medicine; Visit Provider Orthopaedic Surgery | DX: M17.0 Bilateral primary osteoarthritis of knee (principal) | CPT/HCPCS: 20610; 99212; J1100 ==

== ENCOUNTER → 2022-03-29 09:38 | Outpatient (BNVA) | payer MEDICARE, SELFPAY | PROVIDERS: PCP Internal Medicine; Visit Provider Nurse Practitioner Family | DX: M17.0 Bilateral primary osteoarthritis of knee (principal); M25.561 Pain in right knee; M25.562 Pain in left knee | CPT/HCPCS: Q3014 ==

== ENCOUNTER 2022-04-11 15:17 | Outpatient (REF) | payer MEDICARE, SELFPAY ==
--- NOTE | ~2022-04-11 | MM_ITS ---
EXAMINATION: MM SCREENING DIGITAL BREAST TOMOSYNTHESIS, BILATERAL CLINICAL INFORMATION: Screening. Asymptomatic. The lifetime risk of breast cancer based on the Tyrer-Cuzick Model is 3%. COMPARISON: Outside mammography: 06/11/2017, 07/05/2015 ([facility]) TECHNIQUE: Digital breast tomosynthesis is performed in both the craniocaudal and mediolateral oblique views along with computer-aided detection (CAD). Synthesized 2D images are generated from the tomosynthesis. FINDINGS: There are scattered areas of fibroglandular density (ACR BI-RADS breast composition Category b). There are no significant masses, abnormal calcifications, or other abnormalities. Left breast has small smooth bilobed nodule mid 3:00 position, similar to prior outside exam. No developing density. The axilla and skin contours are unremarkable. MM/MM tomosynthesis screening BI IMPRESSION: No mammographic evidence of malignancy. ASSESSMENT: BI-RADS 2: Benign RECOMMENDATION: Routine annual mammography screening. This patient's information was entered into a reminder system with a target due date for their next mammogram.
== END 2022-04-11 15:18 | disposition home or self-care (01) ==
LOC: HO.MAMMO 15:17
PROVIDERS: Visit Provider Internal Medicine
DX: Z12.31 Encounter for screening mammogram for malignant neoplasm of breast (principal)
CPT/HCPCS: 77063; 77067

== ENCOUNTER → 2022-04-17 13:24 | Day surgery (SDC) | payer MEDICARE, SELFPAY ==
[2022-04-17 13:40] VITALS: BMI 29.1
[2022-04-17 13:44] VITALS: BP 131/62; PULSE 75; RESP 18; TEMP 36.4; O2SAT 96
--- NOTE | 2022-04-17 14:22 | PC.NURSE ---
patient extremely anxious. repeating self. redirected multiple times. c/o tight abd pain. states its her baseline and verified by daughter as well. assisted with dressing into hospital attire.
--- NOTE | 2022-04-17 14:47 | PC.NURSE ---
md cadena by bedside speaking to patient regarding her plan of care with patient and her daughter by debbie.
--- NOTE | 2022-04-17 14:56 | PC.NURSE ---
plan changed. canceled procedure.
== END ==
PROVIDERS: PCP Internal Medicine; Visit Provider Internal Medicine
DX: M25.561 Pain in right knee (principal); M25.562 Pain in left knee; Z53.8 Procedure and treatment not carried out for other reasons

== ENCOUNTER → 2022-04-26 14:28 | Outpatient (BNVA) | payer MEDICARE, SELFPAY | PROVIDERS: PCP Internal Medicine; Visit Provider Nurse Practitioner Family | DX: R10.9 Unspecified abdominal pain (principal); K58.1 Irritable bowel syndrome with constipation; K21.9 Gastro-esophageal reflux disease without esophagitis; R14.0 Abdominal distension (gaseous); K64.9 Unspecified hemorrhoids | CPT/HCPCS: 99212 ==

== ENCOUNTER 2022-08-27 16:17 | Outpatient (REF) | payer MEDICARE, SELFPAY ==
[2022-08-27 16:33] LABS: MANUAL DIFF FLAG NO
[2022-08-27 18:01] LABS: Basophils Absolute Auto 0.1 X10*3/uL (0.0-0.2); Basophils Percent Auto 0.6 % (0-2); Eosinophils Absolute Auto 0.3 X10*3/uL (0.0-0.4); Eosinophils Percent Auto 3.4 % (0-4); Hematocrit 36.7 % (37.0-47.0); Hemoglobin 11.6 g/dl (12.0-16.0); Imm Gran Abs Auto 0.03 X10*3/uL (0.00-0.03); Imm Gran Pct Auto 0.3 % (0.0-0.4); Lymphocytes Absolute Auto 2.5 X10*3/uL (1.2-4.9); Lymphocytes Percent Auto 28.5 % (20-40); Mean Corpuscular HGB Conc 31.6 g/dl (31.0-35.0); Mean Corpuscular Hemoglobin 27.6 pg (27.0-33.0); Mean Corpuscular Volume 87.4 fL (80.0-98.0); Monocytes Absolute Auto 0.6 X10*3/uL (0.1-1.2); Monocytes Percent Auto 6.6 % (2-11); Neutrophils Absolute Auto 5.3 x10*3/uL (2.0-8.3); Neutrophils Percent Auto 60.6 % (45-73); Platelet Count 311 X10*3/uL (160-400); Red Cell Distribution Width 15.3 % (11.0-16.0); White Blood Count 8.8 X10*3/uL (4.8-10.8)
[2022-08-27 18:14] LABS: Alanine Aminotransferase 6 U/L (0-31); Albumin Level 3.8 g/dL (3.5-5.0); Alkaline Phosphatase 111 U/L (39-117); Anion Gap 15 (12-20); Aspartate Amino Transferase 14 U/L (5-31); Bilirubin Total 0.5 mg/dL (0.0-1.0); Blood Urea Nitrogen 10 mg/dL (9-16); C Reactive Protein 4.12 mg/dL (< or = 0.50); Carbon Dioxide 26 mmol/L (22-29); Chloride 105 mmol/L (96-108); Estimated Glomerular Filt Rate > 60; Glucose Random 113 mg/dL (60-115); Sodium 142 mmol/L (135-145); Total Protein 7.2 g/dL (6.5-8.0)
[2022-08-27 18:37] LABS: Erythrocyte Sedimentation Rate 57 MM/HR (0-20)
[2022-08-28 07:49] LABS: HBS Num1 0.28 mIU/mL (0-7.99); HBc Num1 0.06 S/CO (0.00-0.79); HBsAGNum1 0.28 S/CO (0.00-0.99); Hepatitis A Antibody IgM 0.32 Index (0-0.79); Hepatitis B Core Antibody Nonreactive (Nonreactive); Hepatitis B Surface Antigen Negative (Negative); ~HepC Num1 0.17 S/CO (0.00-0.79); ~Hepatitis A Antibody IgM Nonreactive (Nonreactive); ~Hepatitis B Surface Antibody NONREACTIVE (Nonreactive); ~Hepatitis C Antibody Nonreactive (Nonreactive)
[2022-08-29 23:24] LABS: TS Negative Control Passed; TS Panel A 0; TS Panel B 0; TS Positive Control Passed; TSpotTB Negative (Negative)
== END 2022-08-27 16:18 | disposition home or self-care (01) ==
LOC: HO.LAB 16:17
PROVIDERS: PCP Internal Medicine; Visit Provider Internal Medicine Rheumatology
DX: M05.9 Rheumatoid arthritis with rheumatoid factor, unspecified (principal); Z79.899 Other long term (current) drug therapy
CPT/HCPCS: 36415; 80053; 85025; 85652; 86140; 86481; 86704; 86706; 86709; 86803; 87340

== ENCOUNTER 2022-09-02 13:25 | Outpatient (REF) | payer MEDICARE, SELFPAY ==
--- NOTE | ~2022-09-02 | XR_ITS ---
EXAMINATION: XR KNEE, LEFT CLINICAL INFORMATION: Rheumatoid arthritis COMPARISON: 08/23/2021 TECHNIQUE: Four views of the left knee. FINDINGS: Progressively worsened knee and patellofemoral joint space narrowings, sclerosis, subchondral cysts and spur formation. Prominent tibial tubercle again seen. No fracture or dislocation. Moderately large suprapatellar effusion and bulky appearing popliteal fossa again noted. XR/XR knee LT 3V IMPRESSION: Progression advanced left knee arthritic changes.
== END 2022-09-02 13:26 | disposition home or self-care (01) ==
LOC: HO.XRAY 13:25
PROVIDERS: PCP Internal Medicine; Visit Provider Internal Medicine Rheumatology
DX: M05.9 Rheumatoid arthritis with rheumatoid factor, unspecified (principal)
CPT/HCPCS: 73562; 99212

== ENCOUNTER 2023-03-25 14:00 | Outpatient (AMB) | payer MEDICARE, SELFPAY ==
--- NOTE | 2023-03-25 14:03 | MHC.OFFVIS ---
Intake Vital Signs 03/25/23 14:04 Height 4 ft 8 in Weight 122 lb 9.232 oz BMI 27.5 BP 128/70 Blood Pressure Location Rt brachial Position Sitting Pulse 88 Pulse Source Pulse Oximeter Temp 97.3 F Temp Source Skin Pulse Oximetry (%) 93 Intake Visit Reasons: Primary Care Doctor recommended appointment Intake Note: Pt last seen 09/02/[address] Miller[address] New PCP Dr Stewart at [place]. Had recent eval with [facility], daughter states pt needs a letter for accommodations at home Radio Station Manager Required: No Accompanied by: Daughter Allergies Iodinated Contrast Media [IV CONTRAST] Allergy (Intermediate, Verified 03/25/23 14:14) ITCHINESS red dye Allergy (Intermediate, Verified 03/25/23 14:14) Hives CHOLESTEROL MEDICATIONS Allergy (Intermediate, Uncoded 03/25/23 14:14) MOUTH BLISTERS Medication List - Last Reconciled 03/25/23 by Bakari Regalado MD albuterol sulfate 90 mcg/actuation (ProAir HFA) 2 puffs PO QID PRN estradiol 0.01%(0.1mg/gram) grams vaginal folic acid 1 mg PO DAILY hydrocortisone 2.5% (Proctosol HC) 1 appl MD BID-QID PRN magnesium oxide 400 mg PO DAILY methylcellulose (laxative) (Citrucel) 500 mg PO DAILY mirtazapine 15 mg PO BEDTIME pantoprazole 40 mg PO DAILY polyethylene glycol 3350 (Miralax) 17 grams PO DAILY HPI HPI Comments History of Present Illness Details 77-year-old female with seropositive erosive RA returns for follow-up. She did not start methotrexate as instructed by Dr. LOERA last visit. Worried about side effects. She states that she has stomach upset and constipation and worried about numerous side effects. She continues to have diffuse joint pain, her neck, shoulders, knees. Most recent history by Dr. Miller 08/2022: The patient returns today for evaluation of her rheumatoid arthritis and secondary osteoarthritis. She is having more pain in the left knee. There has been swelling and of fullness felt posteriorly. Other joints have remained painful as they have been before including the shoulders, wrists, hands, and the other knee. She is taking [id number] ibuprofen, 2-4 tablets a day. Her daughter accompanies her today. The daughter indicates the patient has continued anxiety about taking pills. She is worried about allergy and side effects. We have had multiple discussions about the active rheumatoid arthritis the patient has and how treatment might impact that and potentially prevent joint destruction in the future. However recent radiographs have indicated severe destructive rheumatoid arthritis in the knees. Today the patient has the idea that the last injection given in the knee, back in March or April in orthopedics resulted in a broken needle that was left in the joint. The improvement with the corticosteroid injection last time was only for a few weeks. [facility] Medical History Arthritis Back pain Peripheral neuropathy Hard of hearing IBS (irritable bowel syndrome) GERD (gastroesophageal reflux disease) Asthma Spinal stenosis COPD (chronic obstructive pulmonary disease) Rheumatoid arthritis Surgical History History of back surgery Hx of bilateral cataract extraction Social History Household Members: Family Household Members Other:: daughter Are you a primary career education teacher to a significant other at home: No Do you presently have visiting nurse or other home services: No Alcohol intake: never Patient Tobacco Use Status: Current everyday Tobacco user Tobacco use type: Cigarette Cigarettes Per Day: 4 Years Smoked: 40+ Review of Systems ENT Reports neck pain Musc Reports deformity, Reports arthralgias, Reports joint swelling, Reports limited range of motion, Reports neck pain and Reports stiffness Physical Exam Vital Signs: Last Vital Signs Temp 97.3 F 03/25/23 14:04 Pulse 88 03/25/23 14:04 BP 128/70 03/25/23 14:04 Pulse Ox 93 03/25/23 14:04 BMI result Body Mass Index 27.5 Const General: cooperative, healthy appearing and comfortable Nutritional Appearance: overweight Orientation/consciousness: patient oriented x3 Limitations: wheelchair HEENT Other: [id number]-tz-pricjca Head: Yes normocephalic and Yes atraumatic Mouth: moist mucous membranes Resp Effort & Inspection: normal respiratory effort and able to speak in complete sentences Auscultation: wheezes and diminished lung sounds bilateral Cardio Rate: regular rate Neuro General: patient oriented x3 Extrem Other: Hands:? Right:? There is subluxation, ulnar deviation and soft tissue swelling at all the MCP joints.? The 2nd 3rd are mildly tender.?There is mild soft tissue swelling at the 2nd and 3rd PIP is and there is some swan necking at the 3rd and 4th PIP.? Left:? Slight ulnar deviation, soft tissue swelling and tenderness at all the MCPs.? There is soft tissue swelling and tenderness at the 2nd 3rd PIP.? There is some swan necking at the 3rd and 4th PIP.? There is some nontender bony enlargement at the 5th PIP.? Wrists:.? Right:? Mild pain with flexion at 60 degrees or 45 degrees of extension.? There is impi-lg-vbsvxzhc soft tissue swelling and some mild tenderness.? No redness or warmth.? Left:? Mild to moderate soft tissue swelling, mild pain with flexion or extension at 45 degrees.? Mild tenderness but no redness or warmth. Elbows:.? The elbows lack about 15 degrees of full extension.? There is pain with attempts at full extension or flexion beyond 100 degrees.? There is some soft tissue swelling over the joint spaces and slight tenderness but no redness or warmth. Shoulders:.? Right:? Mild to moderate pain with abduction at 90 degrees or with any attempted rotation.? There is mild anterior, subacromial and posterior tenderness.? There is some abductor weakness but no adenopathy.? Left: Mild pain with abduction 120 degrees or with extremes of rotation.? Mild anterior tenderness without swelling.? Questionable abductor weakness but no adenopathy. Hip bursa:.? No tenderness. Knees:.? ?Left:? Fymg-ub-lonwuotx pain with more than 45 degrees range of motion.? She lacks about 10 degrees of full extension and can only flex to 90 degrees.? There is some mild to moderate soft tissue swelling and mild to moderate medial, lateral and posterior tenderness.? There is a at least a moderate effusion but no redness or warmth.? There is a 10 soft tissue swelling in the popliteal region consistent with a Humphries cyst.? It is mildly tender.? Right:? Mild pain with extremes of flexion or extension.? Mild medial tenderness with a small effusion, moderate soft tissue swelling but no redness or warmth. Ankles: Normal pain-free range of motion with mild tenderness but no swelling, increased warmth or erythema. Feet:? Mild tenderness across the insteps.? She could not remove her shoes today.. Results Reviewed Results Reviewed: Patient: Sindy Stewart MR#: [id number] : 1945 Acct:[id number] Age/Sex: 77 / F ADM Date: 09/02/22 Loc: [facility] Attending Dr: Cal Miller MD Ordering Physician: Cal Miller MD Date of Service: 09/02/22 Procedure(s): XR knee LT 3V Accession Number(s): [id number] cc: Cal Miller MD~ EXAMINATION:? XR KNEE, LEFT? CLINICAL INFORMATION:? Rheumatoid arthritis?? COMPARISON:? 08/23/2021 TECHNIQUE:? Four views of the left knee. FINDINGS: Progressively worsened knee and patellofemoral joint space narrowings, sclerosis, subchondral cysts and spur formation. Prominent tibial tubercle again seen. No fracture or dislocation. Moderately large suprapatellar effusion and bulky appearing popliteal fossa again noted. XR/XR knee LT 3V IMPRESSION: Progression advanced left knee arthritic changes History: Shoulder pain. ? Bilateral shoulder, 3 views of each. The patient was unable to position for axillary views due? to body habitus. ? FINDINGS: The bones are osteopenic. ? There are subchondral cysts of the right humeral head. ? The right shoulder is high riding. ? There are moderate degenerative changes in the a.c. joint and shoulder outlet bilaterally.? ? There is advanced glenohumeral joint degeneration bilaterally, left greater than right.? ? There is deformity of the left humeral head and left glenoid. ? There are no appreciable soft tissue calcifications. ? IMPRESSION Advanced degenerative changes of both shoulders as described.. ? Reading Radiologist: ? 6:53 PM BILATERAL FEET, 3 VIEWS EACH ? HISTORY: Joint pain and stiffness. Rheumatoid arthritis.. ? FINDINGS: The bones are osteopenic.? ? Right foot: There is moderate hallux valgus deformity. There is subluxation at the third,? fourth and fifth MTP joints. The fifth metatarsal head is not articulated with the base of the? fifth proximal phalanx. There is a small plantar spur. There is a small posterior calcaneal? spur. There is degenerative spurring at the second MTP joint.. ? Left foot:. There is severe hallux valgus deformity. There is spurring of the first MTP joint.? There is subluxation with dislocation of all of the MTP joints.. There is degenerative change? of the first cuneiform-first metatarsal joint. There is a tiny plantar spur and a tiny? posterior calcaneal spur. ? IMPRESSION IMPRESSION:? Subluxation/dislocation of MTP joints bilaterally as described. ? Degenerative changes bilaterally. ? Calcaneal spurs bilaterally. ? Reading Radiologist: ? 6:45 PM BILATERAL HANDS, 3 VIEWS EACH ? HISTORY: Joint pain and stiffness. Rheumatoid arthritis. ? FINDINGS: The bones are osteopenic. ? Right hand: There are subchondral cysts of the carpal bones. There is erosive change of the? distal ulna and distal radius. There is subluxation at all of the MCP joints. There is? degenerative change of the IP joint; second, third, fourth and fifth PIP joints. ? Left hand: There are subchondral cysts of the carpal bones. There is erosive change of the? distal radius and distal ulna. There is subluxation at all of the MCP joints. There is severe? narrowing of the radial carpal joint. There is degenerative change the first CMC joint. There? is degenerative change at the IP joint; second, third, fourth, fifth PIP joints. ? IMPRESSION IMPRESSION: Subluxation and degenerative changes as described. There are erosive changes of the ?distal ulna and distal radius bilaterally. Assessment & Plan Assessment & Plan (1) Seropositive rheumatoid arthritis: Comment: Onset ++RF+++CCP Ab. 3 episodes of pericarditis with pericardial effusion needing drainage [id number] Interstitial lung disease Severe destructive disease in hands, wrists, shoulders, knees, feet Offered leflunomide in 07/02: refused Offered hydroxychloroquine 03/03: refused MTX was offered 08/2022 patient did not start Consistently refuses DMARD's Code(s): M05.9 - Rheumatoid arthritis with rheumatoid factor, unspecified Plan: This is a 77-year-old female with longstanding seropositive destructive rheumatoid arthritis which started in the 80s complicated by 3 episodes of pericardial effusion [id number], who presents for follow-up. Patient has consistently refused DMARDs. Most recently methotrexate was prescribed 08/[address] Milelr and patient still did not start the methotrexate for fear of side effects. She continues to have elevated inflammatory markers Today we had another long discussion about rheumatoid arthritis. It's complications such as worsening degenerative arthritis, deformities and potential joint subluxation and tendon rupture in addition to other complications such as cardiovascular diseases (ND and stroke), pleuropericardial disease and interstitial lung disease. Today her concern was GI upset and constipation. I offered her methotrexate by subcutaneous route. She was agreeable. Will start methotrexate 15 mg weekly + folic acid 1 mg daily Once daughter picks up the medication and syringes, she will call the clinic for injection teaching Labs before next visit in 2 months Patient shows me (2) Tricompartment osteoarthritis of both knees: Code(s): M17.0 - Bilateral primary osteoarthritis of knee Plan: Today patient brings in a letter of accommodation at her [employer] housing. Requesting authorization for a ramp. Discussed with patient and her daughter. Likely patient qualifies for having a ramp given her extensive bilateral knee osteoarthritis and reliance on wheelchair however, if she is not going to follow-up with me regularly I will not sign this form. It can be done by her PCP If patient proves to be compliant. I am happy to complete this form Plan I spent 30 minutes reviewing patient's chart, evaluating patient, ordering diagnostic workup, counseling patient and documenting in the chart Orders: Orders Erythrocyte Sedimentation Rate 2 Months Z79.899 - Other terminal operations supervisor (current) drug therapy Complete Blood Count Auto Diff 2 Months Z79.899 - [facility] Comprehensive Met. Panel 2 Months Z79.899 - [facility] [place] drug therapy C Reactive Protein 2 Months Z79.899 - Other terminal operations supervisor (current) drug therapy Medications: New methotrexate sodium 15 mg (0.6 mL) subcut QWEEK 4 mL 1RF insulin syringe,safetyneedle (Assure ID Insulin Safety) As directed 100 ea 0RF Refilled folic acid 1 mg PO DAILY 60 tabs 1RF Coding Level of Care Code Est Pt Level 4 (99426) Diagnoses Seropositive rheumatoid arthritis M05.9 Tricompartment osteoarthritis of both knees M17.0
[2023-03-25 14:04] VITALS: BP 128/70; PULSE 88; TEMP 36.3; O2SAT 93; BMI 27.5
== END 2023-03-25 14:41 | disposition home or self-care (01) ==
LOC: HO.RHE 14:00
PROVIDERS: PCP Student in an Organized Health Care Education/Training Program; Visit Provider Student in an Organized Health Care Education/Training Program
DX: M05.79 Rheumatoid arthritis with rheumatoid factor of multiple sites without organ or systems involvement (principal); M17.0 Bilateral primary osteoarthritis of knee
CPT/HCPCS: 99214

== ENCOUNTER → 2023-03-25 14:00 | Outpatient (BNVA) | payer MEDICARE, SELFPAY | PROVIDERS: PCP Student in an Organized Health Care Education/Training Program; Visit Provider Student in an Organized Health Care Education/Training Program | DX: M05.9 Rheumatoid arthritis with rheumatoid factor, unspecified (principal); M17.0 Bilateral primary osteoarthritis of knee | CPT/HCPCS: 99212 ==